=== PATIENT | female | born 1990 | race Caucasian/White ===

== ENCOUNTER 2018-12-13 08:16 | Observation (INO) | payer BC, OTHER ==
[~2018-12-13] VITALS: Ht 165.1 cm; Wt 72.7 kg
[2018-12-13] MEDS ORDERED: FENTANYL PF 100 MCG/2ML ONE ×3 (08:56→14:11)
[2018-12-13 09:35] LABS: AMPHETAMINE SCREEN, URINE Negative (Negative); BARBITURATE SCREEN, URINE Negative (Negative); BENZODIAZEPINE SCREEN, URINE Negative (Negative); CANNABINOID SCREEN, URINE Negative (Negative); COCAINE SCREEN, URINE Negative (Negative); METHADONE SCREEN, URINE Negative (Negative); OPIATE SCREEN, URINE Negative (Negative)
[2018-12-13] MEDS ORDERED: LACTATED RINGERS 500 ML IVBOLUS ONE (10:00)
[2018-12-13] MEDS ORDERED: FENTANYL PF 100 MCG/2ML IVPush ONE ×3 (10:00→13:00)
[2018-12-13] MEDS ORDERED: PLEASE ENTER HEIGHT AND WEIGHT MC SCH (10:30)
[2018-12-13] MEDS ORDERED: CEFTRIAXONE PMX 1GM/50ML 50 ML IV SCH (13:00)
[2018-12-13] MEDS: CYCLOBENZAPRINE 10 MG TABLET PO SCH ×3 (13:15→21:00)
[2018-12-13] MEDS ORDERED: HYDROXYZINE PAMOATE 50MG CAP PO SCH (13:30)
[2018-12-13] MEDS ORDERED: HYDROXYZINE PAMOATE 25MG CAP PO SCH (14:00)
[2018-12-13] MEDS: HYDROXYZINE PAMOATE 25MG CAP PO SCH (14:15)
[2018-12-13] MEDS: LACTATED RINGERS 1,000 ML IV SCH (15:57)
[2018-12-13] MEDS ORDERED: HYDROcodone/APAP 10/325 MG TABLET PO PRN (16:30)
[2018-12-13] MEDS ORDERED: HYDROcodone/APAP 10/325 MG TABLET ONE (16:32)
[2018-12-13] MEDS ORDERED: OXYcodone/APAP 10/325MG TABLET ONE ×2 (16:39→20:32)
[2018-12-13] MEDS: OXYcodone/APAP 10/325MG TABLET PO PRN ×2 (16:40→20:36)
[2018-12-13] MEDS ORDERED: GLYCERIN ADULT SUPP PR PRN (21:00)
[2018-12-13] MEDS ORDERED: BISACODYL 10 MG SUPP PR PRN (21:00)
[2018-12-14] MEDS ORDERED: OXYcodone/APAP 10/325MG TABLET ONE ×2 (00:41→04:34)
[2018-12-14] MEDS: OXYcodone/APAP 10/325MG TABLET PO PRN ×2 (00:42→04:36)
[2018-12-14] MEDS: LACTATED RINGERS 1,000 ML IV SCH (00:43)
[2018-12-14] MEDS: CYCLOBENZAPRINE 10 MG TABLET PO SCH (04:42)
[2018-12-14 07:09] LABS: BASOPHILS # (AUTO) 0.01 x10^3/uL (0-0.1); BASOPHILS % (AUTO) 0 % (0-1); EOSINOPHILS # (AUTO) 0.06 x10^3/uL (0-0.4); EOSINOPHILS % (AUTO) 1 % (1-7); LYMPHOCYTES # (AUTO) 1.91 x10^3/uL (1-3.4); LYMPHOCYTES % (AUTO) 23 % (22-44); MD NO; MEAN CORPUSCULAR HEMOGLOBIN 29.2 pg (27.0-34.8); MEAN CORPUSCULAR HGB CONC 33.3 g/dL (32.4-35.8); MEAN CORPUSCULAR VOLUME 87.8 fL (80-100); MEAN PLATELET VOLUME 8.9 fL (7.4-10.4); MONOCYTES # (AUTO) 0.66 x10^3/uL (0.2-0.8); MONOCYTES % (AUTO) 8 % (2-9); NEUTROPHILS # (AUTO) 5.63 x10^3/uL (1.8-6.8); NEUTROPHILS % (AUTO) 68 % (42-75); PLATELET COUNT 176 x10^3/uL (130-400); RED BLOOD COUNT 3.25 x10^6/uL (3.82-5.3); RED CELL DISTRIBUTION WIDTH 13.1 % (9.6-15.2)
[2018-12-14] MEDS ORDERED: OXYcodone/APAP 5/325MG TABLET PO PRN (07:30)
[2018-12-14] MEDS ORDERED: FENTANYL PF 100 MCG/2ML ONE (08:35)
[2018-12-14] MEDS: HYDROXYZINE PAMOATE 25MG CAP PO SCH (08:47)
[2018-12-14] MEDS ORDERED: FENTANYL PF 100 MCG/2ML IVPush ONE (09:00)
[2018-12-14] MEDS ORDERED: OXYcodone/APAP 5/325MG TABLET ONE (10:03)
[2018-12-14] MEDS ORDERED: DOCUSATE 100 MG CAPSULE ONE (11:03)
[2018-12-14] MEDS ORDERED: DOCUSATE 100 MG CAPSULE PO SCH (11:30)
[2018-12-14] MEDS ORDERED: CYCL-259 PO (13:02)
== END 2018-12-14 14:36 | disposition home or self-care (01) ==
LOC: LDOP 08:16 → MERGE 08:16 → LDIP 10:00
PROVIDERS: ADMIT Student in an Organized Health Care Education/Training Program; ATTEND Student in an Organized Health Care Education/Training Program
DX: O26.893 Other specified pregnancy related conditions, third trimester (principal); R10.9 Unspecified abdominal pain; Z3A.35 35 weeks gestation of pregnancy
CPT/HCPCS: 59025; 72195; 74181; 80307; 82962; 85025; 96365; 96375; 96376; G0378; J0696; J3010; J7120; 96360; 96361

== ENCOUNTER 2019-03-08 11:48 | Emergency (ER) | payer SELFPAY ==
[~2019-03-08] VITALS: Ht 165.1 cm; Wt 71.5 kg
[~2019-03-08 11:48] MED LIST: CYCL-259 PO
[2019-03-08 11:51] VITALS: BP 144/82
--- NOTE | 2019-03-08 15:26 | NUR ---
Patient/Caregiver given discharge instructions and they have confirmed that they understand the instructions. Patient ambulatory with steady gait.
== END 2019-03-08 15:28 | disposition home or self-care (01) ==
LOC: ED 12:11
DX: S52.572A Other intraarticular fracture of lower end of left radius, initial encounter for closed fracture (principal); M79.632 Pain in left forearm; V29.49XA Motorcycle driver injured in collision with other motor vehicles in traffic accident, initial encounter; Y93.89 Activity, other specified; Y92.89 Other specified places as the place of occurrence of the external cause; Y99.8 Other external cause status
CPT/HCPCS: 29125; 99283